=== PATIENT | female | born 1985 | race Caucasian/White ===

== ENCOUNTER 2019-04-30 15:40 | Outpatient (CLI) | payer OTHER ==
[2019-04-30] MEDS ORDERED: TERBUTALINE 1 MG/ML INJ SC (16:30)
[2019-04-30] MEDS ORDERED: TERBUTALINE 1 ML (16:48)
[2019-04-30 17:05] LABS: ADD UMIC YES; UR ASCORBIC ACID NEGATIVE (NEGATIVE); UR BACTERIA FEW /HPF (NONE SEEN); UR BILIRUBIN (Dip) NEGATIVE (NEGATIVE); UR BLOOD (Dip) 1+ mg/dL (NEGATIVE); UR CLARITY SLIGHTLY CLOUDY (CLEAR); UR COLOR YELLOW (YELLOW); UR GLUCOSE (Dip) NEGATIVE (NEGATIVE); UR KETONES (Dip) NEGATIVE (NEGATIVE); UR LEUKOCYTE ESTERASE (Dip) 2+ Leu/ul (NEGATIVE); UR NITRITE (Dip) NEGATIVE (NEGATIVE); UR RBC 1 /HPF (0-5); UR SPECIFIC GRAVITY (Dip) 1.014 (1.003-1.030); UR SQUAMOUS EPITHELIAL CELL FEW /HPF (FEW); UR TOTAL PROTEIN (Dip) NEGATIVE (NEGATIVE); UR UROBILINOGEN (Dip) NEGATIVE (NEGATIVE); UR WBC 10 /HPF (0-5)
[2019-04-30] MEDS: LACTATED RINGER'S 1,000 ML IV (17:10)
[2019-04-30] MEDS: CEFAZOLIN 2 GM/50 ML (PMX) 50 ML IVPB (18:48)
== END 2019-04-30 18:05 | disposition home or self-care (01) ==
LOC: OBT 15:40 → L-D 15:40 → OBT 18:05
DX: O23.43 Unspecified infection of urinary tract in pregnancy, third trimester (principal); Z3A.30 30 weeks gestation of pregnancy
CPT/HCPCS: 36415; 76815; 76817; 76818; 81001; 87086; 87591; 96360; 96361; 96372

== ENCOUNTER 2019-05-27 20:39 | Inpatient (IN) | payer MEDICAID, OTHER ==
[2019-05-27] MEDS: TERBUTALINE 1 MG/ML INJ SC (22:17)
[2019-05-27] MEDS: LACTATED RINGER'S 1,000 ML IV ×2 (22:17→22:32)
[2019-05-27 22:23] LABS: ADD MAN DIFF? NO
[2019-05-27 22:26] LABS: WHITE BLOOD COUNT 9.8 10^3/ul (4.8-10.8)
[2019-05-27 22:26] LABS: BASOPHILS % 0.3 % (0.0-2.0); EOSINOPHILS # 0.1 10^3/ul (0.0-0.5); HEMATOCRIT 35.7 % (37.0-47.0); HEMOGLOBIN 12.1 g/dl (12.0-16.0); LYMPHOCYTES # 1.8 10^3/ul (0.8-2.9); LYMPHOCYTES % 18.4 % (15.0-51.0); MEAN CORPUSCULAR HEMOGLOBIN 31.8 pg (29.0-33.0); MEAN CORPUSCULAR HGB CONC 33.9 g/dl (32.0-37.0); MEAN CORPUSCULAR VOLUME 93.7 fl (82.0-101.0); MEAN PLATELET VOLUME 10.8 fl (7.4-10.4); MONOCYTE # 0.6 10^3/ul (0.3-0.9); MONOCYTES % 6.4 % (0.0-11.0); NEUTROPHIL # 7.2 10^3/ul (1.6-7.5); NEUTROPHILS % 73.2 % (39.0-77.0); PLATELET COUNT 191 10^3/UL (140-415); RED BLOOD COUNT 3.81 10^6/ul (4.20-5.40); RED CELL DISTRIBUTION WIDTH 12.8 % (11.5-14.5)
[2019-05-27 22:33] LABS: ADD UMIC YES; UR ASCORBIC ACID NEGATIVE (NEGATIVE); UR BACTERIA FEW /HPF (NONE SEEN); UR BILIRUBIN (Dip) NEGATIVE (NEGATIVE); UR BLOOD (Dip) 2+ mg/dL (NEGATIVE); UR CLARITY CLEAR (CLEAR); UR COLOR STRAW (YELLOW); UR GLUCOSE (Dip) NEGATIVE (NEGATIVE); UR KETONES (Dip) NEGATIVE (NEGATIVE); UR LEUKOCYTE ESTERASE (Dip) 1+ Leu/ul (NEGATIVE); UR NITRITE (Dip) NEGATIVE (NEGATIVE); UR RBC 3 /HPF (0-5); UR SPECIFIC GRAVITY (Dip) 1.003 (1.003-1.030); UR SQUAMOUS EPITHELIAL CELL FEW /HPF (FEW); UR TOTAL PROTEIN (Dip) NEGATIVE (NEGATIVE); UR UROBILINOGEN (Dip) NEGATIVE (NEGATIVE); UR WBC 5 /HPF (0-5)
[2019-05-27 22:45] LABS: INR 0.86; PROTIME 11.8 Sec (11.9-14.9); PT RATIO 0.9
[2019-05-27 22:46] LABS: ALANINE AMINOTRANSFERASE 18 IU/L (13-69); ALBUMIN 3.7 g/dl (3.3-4.9); ALBUMIN/GLOBULIN RATIO 1.12; ALKALINE PHOSPHATASE 94 IU/L (42-121); ANION GAP 9 (5-13); ASPARTATE AMINO TRANSFERASE 23 IU/L (15-46); BILIRUBIN,INDIRECT 0.4 mg/dl (0-1.1); BILIRUBIN,TOTAL 0.4 mg/dl (0.2-1.3); BLOOD UREA NITROGEN 7 mg/dl (7-20); CALCIUM 8.7 mg/dl (8.4-10.2); CARBON DIOXIDE 22 mmol/L (21-31); CHLORIDE 107 mmol/L (97-110); CREATININE 0.35 mg/dl (0.44-1.00); Estimated GFR > 60 mL/min (>60); GLUCOSE 79 mg/dl (70-220); PARTIAL THROMBOPLASTIN TIME 27.9 Sec (23.0-35.0); SODIUM 138 mmol/L (135-144)
[2019-05-27 23:16] LABS: HEPATITIS B SURFACE ANTIGEN NEGATIVE (NEGATIVE)
[2019-05-27 23:33] LABS: HEPATITIS C VIRAL ANTIBODY NEGATIVE (NEGATIVE); HIV 1&2 ANTIBODY NEGATIVE (NEGATIVE)
[2019-05-28] MEDS: TERBUTALINE 1 MG/ML INJ SC (00:18)
[2019-05-28] MEDS: BETAMET NA PHOS/AC(6 MG/ML) 2 ML INJ SYG IM (02:30)
[2019-05-28] MEDS: LACTATED RINGER'S 1,000 ML IV ×3 (02:31→13:19)
[2019-05-28] MEDS: ACETAMINOPHEN 325 MG TAB PO (02:54)
[2019-05-28 05:51] LABS: AMPHETAMINE/METHAMPHETAMINE Negative (NEGATIVE); BARBITURATES Negative (NEGATIVE); BENZODIAZEPINES Negative (NEGATIVE); CANNABINOIDS Negative (NEGATIVE); COCAINE Negative (NEGATIVE); OPIATES Negative (NEGATIVE)
[2019-05-28] MEDS ORDERED: CA GLUCONATE (GM) 10% 10ML INJ IV (07:30)
[2019-05-28] MEDS: MAGNESIUM SULFATE 1 GM/D5W 100 ML IVPB ×2 (08:43→08:56)
[2019-05-28] MEDS: PRENATAL VITAMIN PO (09:04)
[2019-05-28] MEDS: MAGNESIUM SULFATE 20 GM/500 ML 500 ML IV (09:39)
[2019-05-28 13:52] LABS: RAPID PLASMA REAGIN NONREACTIVE (NR)
[2019-05-28 19:09] LABS: MAGNESIUM 4.1 mg/dl (1.7-2.5)
[2019-05-29 00:56] LABS: MAGNESIUM 4.9 mg/dl (1.7-2.5)
[2019-05-29] MEDS: LACTATED RINGER'S 1,000 ML IV ×3 (01:47→21:06)
[2019-05-29] MEDS: MAGNESIUM SULFATE 20 GM/500 ML 500 ML IV (01:49)
[2019-05-29] MEDS: BETAMET NA PHOS/AC(6 MG/ML) 2 ML INJ SYG IM (02:15)
[2019-05-29 06:54] LABS: MAGNESIUM 5.8 mg/dl (1.7-2.5)
[2019-05-29] MEDS: PRENATAL VITAMIN PO (10:11)
[2019-05-29] MEDS: NIFEdipine 10 MG CAP PO ×3 (10:11→21:07)
[2019-05-30] MEDS: LACTATED RINGER'S 1,000 ML IV (08:27)
[2019-05-30] MEDS: PRENATAL VITAMIN PO (09:20)
[2019-05-31] MEDS: LACTATED RINGER'S 1,000 ML IV ×3 (03:17→11:57)
[2019-05-31] MEDS ORDERED: BUTORPHANOL 2 MG INJ (05:12)
[2019-05-31] MEDS: BUTORPHANOL 2 MG INJ IV (05:22)
[2019-05-31] MEDS ORDERED: BUTORPHANOL 2 MG INJ IV (07:30)
[2019-05-31] MEDS ORDERED: MISOPROSTOL 200 MCG TAB PR ×2 (07:30→17:30)
[2019-05-31] MEDS ORDERED: METHYLERGONOVINE 0.2 MG INJ IM ×2 (07:30→17:30)
[2019-05-31] MEDS ORDERED: LIDOCAINE 1% (MPF) 30 ML INJ INJ (07:30)
[2019-05-31] MEDS ORDERED: OXYTOCIN 30 UNITS/LR 500 ML IV ×3 (07:30→17:30)
[2019-05-31] MEDS ORDERED: CARBOPROST 250 MCG INJ IM ×2 (07:30→17:30)
[2019-05-31 08:01] LABS: ADD MAN DIFF? NO
[2019-05-31 08:03] LABS: BASOPHILS % 0.2 % (0.0-2.0); EOSINOPHILS % 0.1 % (0.0-7.0); LYMPHOCYTES # 1.5 10^3/ul (0.8-2.9); MEAN CORPUSCULAR HEMOGLOBIN 32.1 pg (29.0-33.0); MEAN CORPUSCULAR HGB CONC 33.3 g/dl (32.0-37.0); MEAN CORPUSCULAR VOLUME 96.2 fl (82.0-101.0); MEAN PLATELET VOLUME 10.2 fl (7.4-10.4); MONOCYTES % 6.1 % (0.0-11.0); NEUTROPHIL # 13.8 10^3/ul (1.6-7.5); NEUTROPHILS % 83.8 % (39.0-77.0); PLATELET COUNT 162 10^3/UL (140-415); RED BLOOD COUNT 3.43 10^6/ul (4.20-5.40); RED CELL DISTRIBUTION WIDTH 13.2 % (11.5-14.5)
[2019-05-31 08:03] LABS: WHITE BLOOD COUNT 16.4 10^3/ul (4.8-10.8)
[2019-05-31 08:26] LABS: PARTIAL THROMBOPLASTIN TIME 25.2 Sec (23.0-35.0); PROTIME 12.3 Sec (11.9-14.9)
[2019-05-31] MEDS ORDERED: FENTAnyl 2MCG/ML-ROPIV 0.2% 100 ML (09:18)
[2019-05-31] MEDS ORDERED: NALOXONE (0.4 MG/ML) INJ IV ×2 (09:30→14:30)
[2019-05-31] MEDS ORDERED: FENTAnyl 2MCG/ML-ROPIV 0.2% 100 ML BAG EPI (09:30)
[2019-05-31] MEDS ORDERED: DIPHENHYDRAMINE 50 MG INJ IV ×2 (09:30→14:30)
[2019-05-31] MEDS ORDERED: ONDANSETRON 4 MG INJ IV ×2 (09:30→14:30)
[2019-05-31] MEDS: AMPICILLIN 2 GM/NS (PMX) 100 ML IV (10:05)
[2019-05-31] MEDS ORDERED: AMPICILLIN 1 GM/NS (PMX) 50 ML IV (11:30)
[2019-05-31] MEDS ORDERED: CEFAZOLIN 2 GM/50 ML (PMX) 0 ML IVPB (13:12)
[2019-05-31] MEDS ORDERED: LIDOCAINE 1.5%/EPI MPF (SDV) 30 ML VIAL (13:17)
[2019-05-31] MEDS ORDERED: FENTAnyl 50 MCG/ML VIAL (13:17)
[2019-05-31] MEDS ORDERED: MIDAZOLAM 1 MG/ML 2 ML INJ (13:23)
[2019-05-31] MEDS ORDERED: VASOPRESSIN 20 UNITS INJ (13:26)
[2019-05-31] MEDS ORDERED: OXYTOCIN 10 UNIT INJ (13:27)
[2019-05-31] MEDS ORDERED: DEXAMETHASONE 4 MG/ML 1 ML INJ (13:35)
[2019-05-31] MEDS ORDERED: morphine SULFATE/PF (10 MG/10 ML) INJ (13:38)
[2019-05-31] MEDS ORDERED: NA BICARB 50 MEQ/50 ML VIAL (13:41)
[2019-05-31] MEDS ORDERED: ZOLPIDEM 5 MG TAB PO (14:30)
[2019-05-31] MEDS ORDERED: HYDROmorphONE 0.5 MG/0.5 ML SYG IV (14:30)
[2019-05-31 14:57] LABS: RAPID PLASMA REAGIN NONREACTIVE (NR)
[2019-05-31] MEDS: OXYTOCIN 30 UNITS/LR 500 ML IV ×2 (15:03→18:53)
[2019-05-31] MEDS: HYDROmorphONE 0.5 MG/0.5 ML SYG IV ×2 (15:27→16:12)
[2019-05-31] MEDS ORDERED: LANOLIN HPA 1 PKT TOP (17:30)
[2019-05-31] MEDS ORDERED: NACL 0.9% 3 ML SYG IV (17:30)
[2019-05-31] MEDS: CEFAZOLIN 1 GM/50 ML (PMX) 50 ML IVPB (18:51)
[2019-05-31] MEDS: KETOROLAC 30 MG INJ IV (18:53)
[2019-05-31] MEDS: SENNA/DOCUSATE NA (8.6MG/50MG) TAB PO (21:00)
[2019-06-01] MEDS: CEFAZOLIN 1 GM/50 ML (PMX) 50 ML IVPB ×2 (01:39→09:08)
[2019-06-01] MEDS: IBUPROFEN 600 MG TAB PO ×4 (06:00→17:44)
[2019-06-01] MEDS: KETOROLAC 30 MG INJ IV (06:30)
[2019-06-01 07:02] LABS: ADD MAN DIFF? NO
[2019-06-01 07:04] LABS: ABNORMAL IP MESSAGE 1; BASOPHILS % 0.1 % (0.0-2.0); LYMPHOCYTES # 1.5 10^3/ul (0.8-2.9); LYMPHOCYTES % 6.1 % (15.0-51.0); MEAN CORPUSCULAR HEMOGLOBIN 31.8 pg (29.0-33.0); MEAN CORPUSCULAR HGB CONC 33.3 g/dl (32.0-37.0); MEAN CORPUSCULAR VOLUME 95.4 fl (82.0-101.0); MEAN PLATELET VOLUME 10.6 fl (7.4-10.4); MONOCYTE # 1.2 10^3/ul (0.3-0.9); MONOCYTES % 4.6 % (0.0-11.0); NEUTROPHIL # 22.5 10^3/ul (1.6-7.5); NEUTROPHILS % 88.6 % (39.0-77.0); PLATELET COUNT 151 10^3/UL (140-415); RED BLOOD COUNT 2.83 10^6/ul (4.20-5.40); RED CELL DISTRIBUTION WIDTH 12.8 % (11.5-14.5)
[2019-06-01 07:04] LABS: WHITE BLOOD COUNT 25.4 10^3/ul (4.8-10.8)
[2019-06-01 07:06] LABS: POSITIVE DIFF @See below
[2019-06-01] MEDS: SENNA/DOCUSATE NA (8.6MG/50MG) TAB PO ×2 (09:00→22:05)
[2019-06-01] MEDS: LACTATED RINGER'S 1,000 ML IV ×2 (09:07→15:00)
[2019-06-01] MEDS: OXYCODONE/ACETAMINOPHEN (5/325) TAB PO ×2 (14:57→22:05)
[2019-06-02] MEDS: OXYCODONE/ACETAMINOPHEN (5/325) TAB PO (04:35)
[2019-06-02] MEDS: IBUPROFEN 600 MG TAB PO ×5 (05:52→23:39)
[2019-06-02] MEDS: SENNA/DOCUSATE NA (8.6MG/50MG) TAB PO ×2 (09:02→21:05)
[2019-06-02 11:11] LABS: ADD MAN DIFF? NO
[2019-06-02 11:14] LABS: ABNORMAL IP MESSAGE 1; BASOPHILS % 0.1 % (0.0-2.0); EOSINOPHILS % 0.2 % (0.0-7.0); HEMATOCRIT 27.5 % (37.0-47.0); HEMOGLOBIN 9.1 g/dl (12.0-16.0); LYMPHOCYTES # 1.1 10^3/ul (0.8-2.9); LYMPHOCYTES % 4.6 % (15.0-51.0); MEAN CORPUSCULAR HEMOGLOBIN 31.8 pg (29.0-33.0); MEAN CORPUSCULAR HGB CONC 33.1 g/dl (32.0-37.0); MEAN CORPUSCULAR VOLUME 96.2 fl (82.0-101.0); MEAN PLATELET VOLUME 10.7 fl (7.4-10.4); MONOCYTE # 0.5 10^3/ul (0.3-0.9); MONOCYTES % 1.9 % (0.0-11.0); NEUTROPHIL # 22.1 10^3/ul (1.6-7.5); NEUTROPHILS % 92.4 % (39.0-77.0); PLATELET COUNT 171 10^3/UL (140-415); RED BLOOD COUNT 2.86 10^6/ul (4.20-5.40); RED CELL DISTRIBUTION WIDTH 13.1 % (11.5-14.5)
[2019-06-02 11:14] LABS: WHITE BLOOD COUNT 23.9 10^3/ul (4.8-10.8)
[2019-06-02 11:16] LABS: POSITIVE DIFF @See below
[2019-06-03] MEDS: IBUPROFEN 600 MG TAB PO ×2 (05:36→12:06)
[2019-06-03 06:48] LABS: ADD MAN DIFF? NO; BASOPHILS % 0.1 % (0.0-2.0); EOSINOPHILS # 0.2 10^3/ul (0.0-0.5); EOSINOPHILS % 0.9 % (0.0-7.0); HEMATOCRIT 25.8 % (37.0-47.0); HEMOGLOBIN 8.5 g/dl (12.0-16.0); LYMPHOCYTES # 1.3 10^3/ul (0.8-2.9); LYMPHOCYTES % 6.9 % (15.0-51.0); MEAN CORPUSCULAR HEMOGLOBIN 31.4 pg (29.0-33.0); MEAN CORPUSCULAR HGB CONC 32.9 g/dl (32.0-37.0); MEAN CORPUSCULAR VOLUME 95.2 fl (82.0-101.0); MEAN PLATELET VOLUME 10.3 fl (7.4-10.4); MONOCYTE # 0.5 10^3/ul (0.3-0.9); MONOCYTES % 2.6 % (0.0-11.0); NEUTROPHIL # 16.6 10^3/ul (1.6-7.5); NEUTROPHILS % 88.6 % (39.0-77.0); PLATELET COUNT 176 10^3/UL (140-415); RED BLOOD COUNT 2.71 10^6/ul (4.20-5.40); RED CELL DISTRIBUTION WIDTH 13.2 % (11.5-14.5)
[2019-06-03 06:48] LABS: WHITE BLOOD COUNT 18.8 10^3/ul (4.8-10.8)
[2019-06-03] MEDS: SENNA/DOCUSATE NA (8.6MG/50MG) TAB PO (08:40)
[2019-06-03] MEDS: DIPHTH/TET/ACEL PERTUSS (ADULT) 0.5 ML VIAL IM* (12:07)
[2019-06-04 14:18] LABS: RUBELLA ANTIBODY - IGG 3.49 index
[2019-06-07 13:27] LABS: RUBELLA ANTIBODY - IGM <20.00 AU/mL
== END 2019-06-03 15:19 | disposition home or self-care (01) | DRG 786 ==
LOC: OBT 20:39 → L-D 20:41 → PP1 05-31 16:45
PROVIDERS: Obstetrics & Gynecology Gynecology
PROC: 10D00Z1 Extraction of Products of Conception, Low, Open Approach (ICD-10-PCS; principal; 2019-05-31)
DX: O60.13X0 Preterm labor second trimester with preterm delivery third trimester, not applicable or unspecified (principal); O45.93 Premature separation of placenta, unspecified, third trimester; O76 Abnormality in fetal heart rate and rhythm complicating labor and delivery; Z3A.35 35 weeks gestation of pregnancy; Z37.0 Single live birth
CPT/HCPCS: 36415; 62322; 76815; 76817; 76818; 80053; 80307; 81001; 83735; 85025; 85610; 85730; 86592; 86703; 86762; 86803; 86850; 86900; 86901; 87086; 87210; 87340; 88307; 90715; 96360; 96361; 96372; 99464

== ENCOUNTER 2019-06-12 15:11 | Inpatient (IN) | payer MEDICAID ==
[2019-06-12] MEDS: CLINDAMYCIN 900 MG (PMX) 50 ML IVPB (15:52)
[2019-06-12] MEDS: KETOROLAC 30 MG INJ IV (15:52)
[2019-06-12 16:00] LABS: ADD MAN DIFF? NO
[2019-06-12 16:03] LABS: WHITE BLOOD COUNT 13.5 10^3/ul (4.8-10.8)
[2019-06-12 16:03] LABS: BASOPHILS % 0.3 % (0.0-2.0); EOSINOPHILS # 0.2 10^3/ul (0.0-0.5); EOSINOPHILS % 1.1 % (0.0-7.0); HEMATOCRIT 29.5 % (37.0-47.0); HEMOGLOBIN 9.6 g/dl (12.0-16.0); LYMPHOCYTES # 1.8 10^3/ul (0.8-2.9); LYMPHOCYTES % 13.6 % (15.0-51.0); MEAN CORPUSCULAR HEMOGLOBIN 30.4 pg (29.0-33.0); MEAN CORPUSCULAR HGB CONC 32.5 g/dl (32.0-37.0); MEAN CORPUSCULAR VOLUME 93.4 fl (82.0-101.0); MONOCYTE # 0.7 10^3/ul (0.3-0.9); MONOCYTES % 4.9 % (0.0-11.0); NEUTROPHIL # 10.7 10^3/ul (1.6-7.5); NEUTROPHILS % 78.9 % (39.0-77.0); PLATELET COUNT 474 10^3/UL (140-415); RED BLOOD COUNT 3.16 10^6/ul (4.20-5.40); RED CELL DISTRIBUTION WIDTH 12.8 % (11.5-14.5)
[2019-06-12 16:21] LABS: ALANINE AMINOTRANSFERASE 19 IU/L (13-69); ALBUMIN 3.2 g/dl (3.3-4.9); ALBUMIN/GLOBULIN RATIO 0.96; ALKALINE PHOSPHATASE 92 IU/L (42-121); ANION GAP 8 (5-13); ASPARTATE AMINO TRANSFERASE 17 IU/L (15-46); BILIRUBIN,INDIRECT 0.3 mg/dl (0-1.1); BILIRUBIN,TOTAL 0.3 mg/dl (0.2-1.3); BLOOD UREA NITROGEN 14 mg/dl (7-20); CALCIUM 8.4 mg/dl (8.4-10.2); CARBON DIOXIDE 26 mmol/L (21-31); CHLORIDE 103 mmol/L (97-110); CREATININE 0.47 mg/dl (0.44-1.00); Estimated GFR > 60 mL/min (>60); GLUCOSE 102 mg/dl (70-220); POTASSIUM 3.6 mmol/L (3.5-5.1); SODIUM 137 mmol/L (135-144); TOTAL PROTEIN 6.5 g/dl (6.1-8.1)
[2019-06-12] MEDS ORDERED: ONDANSETRON 4 MG INJ IV (18:30)
[2019-06-12] MEDS ORDERED: ACETAMINOPHEN 325 MG TAB PO (18:30)
[2019-06-12] MEDS: IOHEXOL 300MG/ML 150 ML BTL (18:54)
[2019-06-12] MEDS: SOD CHLORIDE 0.9% 100 ML (18:54)
[2019-06-13] MEDS ORDERED: CLINDAMYCIN 900 MG (PMX) 50 ML IVPB
[2019-06-13] MEDS: CLINDAMYCIN 900 MG (PMX) 50 ML IVPB ×2 (00:11→08:10)
[2019-06-13] MEDS: LACTATED RINGER'S 1,000 ML IV (01:57)
[2019-06-13 05:24] LABS: ADD MAN DIFF? NO
[2019-06-13 05:29] LABS: WHITE BLOOD COUNT 8.1 10^3/ul (4.8-10.8)
[2019-06-13 05:29] LABS: BASOPHILS % 0.2 % (0.0-2.0); EOSINOPHILS # 0.1 10^3/ul (0.0-0.5); EOSINOPHILS % 1.7 % (0.0-7.0); HEMOGLOBIN 8.9 g/dl (12.0-16.0); LYMPHOCYTES # 1.8 10^3/ul (0.8-2.9); LYMPHOCYTES % 22.3 % (15.0-51.0); MEAN CORPUSCULAR HEMOGLOBIN 30.9 pg (29.0-33.0); MEAN CORPUSCULAR VOLUME 93.8 fl (82.0-101.0); MEAN PLATELET VOLUME 8.9 fl (7.4-10.4); MONOCYTE # 0.4 10^3/ul (0.3-0.9); MONOCYTES % 5.2 % (0.0-11.0); NEUTROPHIL # 5.7 10^3/ul (1.6-7.5); NEUTROPHILS % 69.5 % (39.0-77.0); PLATELET COUNT 397 10^3/UL (140-415); RED BLOOD COUNT 2.88 10^6/ul (4.20-5.40); RED CELL DISTRIBUTION WIDTH 12.6 % (11.5-14.5)
[2019-06-13] MEDS ORDERED: ACETAMINOPHEN 325 MG TAB PO (05:30)
[2019-06-13] MEDS: IBUPROFEN 600 MG TAB PO (08:15)
[2019-06-13] MEDS: HYDROmorphONE 0.5 MG/0.5 ML SYG IV ×2 (09:05→09:43)
[2019-06-13] MEDS: LIDOCAINE 1%/EPI (1:100,000) (MDV) 20 ML INJ (09:43)
[2019-06-13] MEDS: LIDOCAINE 1%/EPI (MDV) 50 ML INJ INJ (09:43)
[2019-06-13] MEDS: TRIMETHOPRIM/SULFAMETHOX (DS) TAB PO (11:06)
[2019-06-13] MEDS ORDERED: ASCORBIC ACID 250 MG TAB GTB (13:00)
[2019-06-13] MEDS: PIPER-TAZO 3.375 GM IV (PMX) 100 ML IVPB ×3 (13:06→23:32)
[2019-06-13] MEDS: FERROUS SULFATE (EC) 325 MG TAB PO ×2 (13:13→21:00)
[2019-06-13] MEDS ORDERED: LIDOCAINE 1%/EPI (1:100,000) (MDV) 20 ML INJ (15:30)
[2019-06-13] MEDS: LIDOCAINE 1%/EPI 30 ML INJ INJ (15:31)
[2019-06-13] MEDS: HYDROCODONE/APAP (5/325) TAB PO (16:17)
[2019-06-13] MEDS: ONDANSETRON 4 MG INJ IV (20:25)
[2019-06-13] MEDS: ASCORBIC ACID 250 MG TAB PO (21:00)
[2019-06-14 05:39] LABS: ADD MAN DIFF? NO
[2019-06-14 05:44] LABS: WHITE BLOOD COUNT 7.6 10^3/ul (4.8-10.8)
[2019-06-14 05:44] LABS: BASOPHILS % 0.5 % (0.0-2.0); EOSINOPHILS # 0.1 10^3/ul (0.0-0.5); EOSINOPHILS % 1.6 % (0.0-7.0); HEMATOCRIT 28.6 % (37.0-47.0); HEMOGLOBIN 9.2 g/dl (12.0-16.0); LYMPHOCYTES # 1.4 10^3/ul (0.8-2.9); MEAN CORPUSCULAR HEMOGLOBIN 30.2 pg (29.0-33.0); MEAN CORPUSCULAR HGB CONC 32.2 g/dl (32.0-37.0); MEAN CORPUSCULAR VOLUME 93.8 fl (82.0-101.0); MEAN PLATELET VOLUME 9.1 fl (7.4-10.4); MONOCYTE # 0.5 10^3/ul (0.3-0.9); MONOCYTES % 6.6 % (0.0-11.0); NEUTROPHIL # 5.5 10^3/ul (1.6-7.5); NEUTROPHILS % 72.5 % (39.0-77.0); PLATELET COUNT 458 10^3/UL (140-415); RED BLOOD COUNT 3.05 10^6/ul (4.20-5.40); RED CELL DISTRIBUTION WIDTH 12.9 % (11.5-14.5)
[2019-06-14] MEDS: PIPER-TAZO 3.375 GM IV (PMX) 100 ML IVPB (05:56)
[2019-06-14] MEDS: FERROUS SULFATE (EC) 325 MG TAB PO ×2 (08:19→21:20)
[2019-06-14] MEDS: ASCORBIC ACID 250 MG TAB PO ×2 (08:19→21:20)
[2019-06-14] MEDS: IBUPROFEN 600 MG TAB PO (12:58)
[2019-06-14] MEDS: HYDROCODONE/APAP (5/325) TAB PO (14:36)
[2019-06-14] MEDS: TRIMETHOPRIM/SULFAMETHOX (DS) TAB PO ×2 (18:09→21:20)
[2019-06-15] MEDS: HYDROCODONE/APAP (5/325) TAB PO (03:00)
[2019-06-15] MEDS: FERROUS SULFATE (EC) 325 MG TAB PO ×2 (09:22→21:12)
[2019-06-15] MEDS: TRIMETHOPRIM/SULFAMETHOX (DS) TAB PO ×2 (09:22→21:12)
[2019-06-15] MEDS: IBUPROFEN 600 MG TAB PO (09:22)
[2019-06-15] MEDS: ASCORBIC ACID 250 MG TAB PO ×2 (09:22→21:12)
[2019-06-16] MEDS: TRIMETHOPRIM/SULFAMETHOX (DS) TAB PO ×2 (08:16→20:25)
[2019-06-16] MEDS: FERROUS SULFATE (EC) 325 MG TAB PO ×2 (08:16→20:25)
[2019-06-16] MEDS: ASCORBIC ACID 250 MG TAB PO ×2 (08:16→20:25)
[2019-06-16] MEDS: HYDROCODONE/APAP (5/325) TAB PO (11:14)
[2019-06-16] MEDS: MULTIVITAMINS 10 ML, THIAMINE 100 MG, FOLIC ACID 1 MG in SOD CHLORIDE 0.9% 1,000 ML IVPB (19:25)
[2019-06-17] MEDS: FERROUS SULFATE (EC) 325 MG TAB PO ×2 (08:22→22:11)
[2019-06-17] MEDS: ASCORBIC ACID 250 MG TAB PO ×2 (08:22→22:11)
[2019-06-17] MEDS: MULTIVITAMINS 10 ML, THIAMINE 100 MG, FOLIC ACID 1 MG in SOD CHLORIDE 0.9% 1,000 ML IVPB (08:23)
[2019-06-17] MEDS: TRIMETHOPRIM/SULFAMETHOX (DS) TAB PO ×2 (08:23→22:11)
[2019-06-17] MEDS: ONDANSETRON 4 MG INJ IV (08:32)
[2019-06-18] MEDS: MULTIVITAMINS 10 ML, THIAMINE 100 MG, FOLIC ACID 1 MG in SOD CHLORIDE 0.9% 1,000 ML IVPB (09:10)
[2019-06-18] MEDS: FERROUS SULFATE (EC) 325 MG TAB PO (09:12)
[2019-06-18] MEDS: TRIMETHOPRIM/SULFAMETHOX (DS) TAB PO (09:13)
[2019-06-18] MEDS: ASCORBIC ACID 250 MG TAB PO (09:13)
[2019-06-18] MEDS: HYDROCODONE/APAP (5/325) TAB PO ×2 (09:14→15:46)
[2019-06-18] MEDS: ONDANSETRON 4 MG INJ IV (10:51)
[2019-06-18] MEDS ORDERED: AL HYDROX/MG HYDROX/SIMETH 30 ML CUP PO (11:30)
== END 2019-06-18 18:20 | disposition home or self-care (01) | DRG 769 ==
LOC: E/R 15:11 → 2NE 18:23
PROC: 0J9C0ZZ Drainage of Pelvic Region Subcutaneous Tissue and Fascia, Open Approach (ICD-10-PCS; principal; 2019-06-13)
DX: O86.01 Infection of obstetric surgical wound, superficial incisional site (principal); O90.89 Other complications of the puerperium, not elsewhere classified; L03.311 Cellulitis of abdominal wall; E88.09 Other disorders of plasma-protein metabolism, not elsewhere classified; I95.9 Hypotension, unspecified; Z87.891 Personal history of nicotine dependence
CPT/HCPCS: 36415; 74177; 80053; 85025; 87070; 87081; 87086; 96374; 96375; 99285-25